=== PATIENT | female | born 1990 | race Two or more races ===

== ENCOUNTER 2018-03-14 04:50 | Inpatient (IN) | payer SELFPAY ==
[~2018-03-14] VITALS: Ht 160 cm; Wt 83.5 kg
[2018-03-14] MEDS ORDERED: PREN1TAB78 MT (05:52)
[2018-03-14] MEDS ORDERED: FERR-71 MT (05:52)
[2018-03-14] MEDS ORDERED: CHOL20004 MT (06:06)
[2018-03-14] MEDS ORDERED: METHYLERGONOVINE MALEATE 0.2 MG/ML IM PRN ×2 (08:15→12:30)
[2018-03-14] MEDS ORDERED: CARBOPROST TROMETHAMINE 250 MCG/ML AMPUL IM PRN (08:15)
[2018-03-14] MEDS ORDERED: BUTORPHANOL TARTRATE 2 MG/ML VIAL IV PRN (08:15)
[2018-03-14] MEDS ORDERED: LIDOCAINE HCL 1% 20ML VIAL (Pyxis) INJ INFIL SCH (08:15)
[2018-03-14] MEDS ORDERED: NALOXONE HCL 0.4 MG/ML 1ML VIAL IM PRN (08:15)
[2018-03-14] MEDS ORDERED: PENICILLIN G POTASSIUM 5 MMU in DEXT 5% WATER 100 ML IV SCH (08:30)
[2018-03-14] MEDS: LACTATED RINGERS 1,000 ML IV SCH ×2 (08:59→09:55)
[2018-03-14 09:06] LABS: BASOPHILS % 0.2 % (0.0-2.0); HEMATOCRIT. 35.4 % (36.0-48.0); HEMOGLOBIN. 11.5 g/dL (12.0-16.0); LYMPHOCYTES % 8.4 % (20.0-50.0); MEAN CORPUSCULAR HEMOGLOBIN 27.2 pg (28.0-32.0); MEAN CORPUSCULAR VOLUME 83.3 fL (81.0-99.0); MONOCYTES % 3.9 % (2.0-8.0); NEUTROPHILS % 87.5 % (40.0-76.0); PLATELET 130 x1000/uL (130-400); RED BLOOD CELL COUNT 4.25 mill/uL (4.2-5.4); RED CELL DISTRIBUTION WIDTH 18.3 % (11.6-14.6)
[2018-03-14 09:15] LABS: INR 0.9; PARTIAL THROMBOPLASTIN TIME 28.7 sec (23.4-31.0); PROTHROMBIN TIME 9.2 sec (9.1-11.1)
[2018-03-14] MEDS: DEXT 5%/LR + PITOCIN 20UNITS/L 1,000 ML IV SCH ×2 (11:40→12:21)
[2018-03-14] MEDS ORDERED: PENICILLIN G POTASSIUM 2.5 MMU in DEXTROSE 5% WATER 50 ML IV SCH (12:00)
[2018-03-14] MEDS ORDERED: DIPHENHYDRAMINE 25MG CAPSULE PO PRN (12:30)
[2018-03-14] MEDS ORDERED: RHO(D) IMMUNE GLOBULIN 300 MCG/SYR IM PRN (12:30)
[2018-03-14] MEDS ORDERED: IBUPROFEN 400MG TABLET PO PRN (12:30)
[2018-03-14] MEDS ORDERED: IBUPROFEN 800MG TABLET PO PRN (12:30)
[2018-03-14] MEDS ORDERED: LANOLIN OINT 0.25 GM TUBE TOP PRN (12:30)
[2018-03-14 12:35] LABS: HEPATITIS B SURFACE ANTIGEN NEGATIVE
[2018-03-14] MEDS ORDERED: DEXT 5%/LR + PITOCIN 20UNITS/L 1,000 ML IV SCH (12:45)
[2018-03-14 14:00] VITALS: BP 116/68
[2018-03-14 15:00] VITALS: BP 127/83
[2018-03-14 15:23] LABS: CLARITY URINE CLEAR (CLEAR); COLOR URINE YELLOW (YELLOW); KETONES URINE NEGATIVE (NEGATIVE); LEUKOCYTE ESTERASE URINE 1+ (NEGATIVE); NITRITE URINE NEGATIVE (NEGATIVE); OCCULT BLOOD URINE 2+ (NEGATIVE); PROTEIN URINE NEGATIVE (NEGATIVE); UROBILINOGEN URINE 0.2 E.U./dL (0.2-1.0)
[2018-03-14 15:49] LABS: *AMPHETAMINES SCREEN URINE NEGATIVE (NEGATIVE); *BARBITURATES SCREEN URINE NEGATIVE (NEGATIVE); *COCAINE SCREEN URINE NEGATIVE (NEGATIVE); CANNABINOID URINE SCREEN NEGATIVE (NEGATIVE); METHADONE URINE SCREEN NEGATIVE (NEGATIVE); OPIATES URINE SCREEN NEGATIVE (NEGATIVE); PHENCYCLIDINE URINE SCREEN NEGATIVE (NEGATIVE)
[2018-03-14 15:50] LABS: *BENZODIAZEPINES SCREEN URINE NEGATIVE (NEGATIVE)
[2018-03-14 21:00] VITALS: BP 109/57
[2018-03-15 06:00] VITALS: BP 115/59
[2018-03-15 06:41] LABS: BASOPHILS % 0.3 % (0.0-2.0); EOSINOPHILS % 0.2 % (0.0-5.0); HEMOGLOBIN. 8.9 g/dL (12.0-16.0); LYMPHOCYTES % 13.7 % (20.0-50.0); MEAN CORPUSCULAR HEMOGLOBIN 27.6 pg (28.0-32.0); MEAN CORPUSCULAR VOLUME 83.6 fL (81.0-99.0); MEAN PLATELET VOLUME 11.5 fl (7.4-10.4); MONOCYTES % 6.1 % (2.0-8.0); NEUTROPHILS % 79.7 % (40.0-76.0); PLATELET 123 x1000/uL (130-400); RED BLOOD CELL COUNT 3.22 mill/uL (4.2-5.4)
[2018-03-15] MEDS: PRENATAL VIT/FE FUMARATE/FA TABLET PO SCH (09:20)
[2018-03-15 14:44] VITALS: BP 104/65
[2018-03-15 19:25] VITALS: BP 118/76
[2018-03-15 23:30] VITALS: BP 116/78
[2018-03-16 04:00] VITALS: BP 124/49
[2018-03-16 08:30] VITALS: BP 103/70
[2018-03-16] MEDS: PRENATAL VIT/FE FUMARATE/FA TABLET PO SCH (09:32)
== END 2018-03-16 10:45 | disposition home or self-care (01) | DRG 560 ==
LOC: 8 EST LDRP 04:50 → OBSVTOIN 04:50 → 8 EST LDRP 10:31 → 8EST 10:44 → 8 EST LDRP 10:49 → 8EST 13:40
PROVIDERS: ADMIT Obstetrics & Gynecology; ATTEND Obstetrics & Gynecology
PROC: 10E0XZZ Delivery of Products of Conception, External Approach (ICD-10-PCS; principal; 2018-03-14)
PROC: 0KQM0ZZ Repair Perineum Muscle, Open Approach (ICD-10-PCS; 2018-03-14)
DX: O69.81X0 Labor and delivery complicated by cord around neck, without compression, not applicable or unspecified (principal); D69.6 Thrombocytopenia, unspecified; D62 Acute posthemorrhagic anemia; O90.81 Anemia of the puerperium; O99.12 Other diseases of the blood and blood-forming organs and certain disorders involving the immune mechanism complicating childbirth; O48.0 Post-term pregnancy; O70.1 Second degree perineal laceration during delivery; Z3A.40 40 weeks gestation of pregnancy; Z37.0 Single live birth; Z91.040 Latex allergy status
CPT/HCPCS: 36415; 80305; 86592; 86703; 86762; 86850; 86900; 87340; J2310; J2540; J2590; J3490; J7060; A4315